=== PATIENT | male | born 1970 | race Caucasian/White ===

== ENCOUNTER 2017-09-01 11:57 | Emergency (ER) | payer OTHER ==
[~2017-09-01] VITALS: Ht 175.3 cm; Wt 102.1 kg
[~2017-09-01 11:57] MED LIST: CYCL10 PO; HYDACE5 PO; IBUP800 PO; NAPR500 PO; Norco 5-325 Ta1 EACH PO; OXYACE5T PO
[2017-09-01 14:13] LABS: Source, Urine Clean Catch
[2017-09-01 14:38] LABS: Appearance, Urine Clear (Clear); Bilirubin, Urine Neg (Neg); Blood, Urine Neg (Neg); Color, Urine Yellow (P-Yellow); Glucose Qualitative, Urine Neg (Neg); Ketones, Urine Neg (Neg); Leukocyte Esterase, Urine Neg (Neg); Nitrite, Urine Neg (Neg); Protein, Urine Neg (Neg); Specific Gravity, Urine 1.015 (1.003-1.022); Urobilinogen, Urine NORM (Normal)
[2017-09-02] MEDS ORDERED: Prednisone20 MG PO (12:18)
[2017-09-02] MEDS ORDERED: Permethrin60 GM TOP (12:18)
[2017-09-03 17:08] LABS: CHLAMYDIA TRACHOMATIS, NAA Positive (Negative); NEISSERIA GONORRHOEAE, NAA Negative (Negative)
== END 2017-09-01 15:44 | disposition home or self-care (01) ==
LOC: ER 11:57
PROVIDERS: Physician Assistant
DX: N50.89 Other specified disorders of the male genital organs (principal)
CPT/HCPCS: 76870; 81003; 96372; 99284; J0696

== ENCOUNTER 2017-09-02 11:54 | Emergency (ER) | payer OTHER ==
[~2017-09-02] VITALS: Ht 175.3 cm; Wt 102.1 kg
[2017-09-02] MEDS ORDERED: Permethrin60 GM TOP (12:18)
[2017-09-02] MEDS ORDERED: Prednisone20 MG PO (12:18)
== END 2017-09-02 12:43 | disposition home or self-care (01) ==
LOC: ER 11:54
DX: R21 Rash and other nonspecific skin eruption (principal)
CPT/HCPCS: J3301

== ENCOUNTER 2023-04-02 12:40 | Emergency (ER) | payer OTHER ==
[~2023-04-02] VITALS: Ht 172.7 cm; Wt 108.9 kg
[~2023-04-02 12:40] MED LIST changes: +Pepcid40 MG PO; +Permethrin60 GM TOP; +Prednisone20 MG PO; +Triamcinolone A15 GM TOP
[2023-04-02 13:06] VITALS: BP 140/112
[2023-04-02] MEDS ORDERED: MUPIROCIN1 G1 TOP (14:33)
[2023-04-02] MEDS ORDERED: SULTRIDS PO (14:33)
== END 2023-04-02 14:42 | disposition home or self-care (01) ==
LOC: ER 12:40
DX: L25.9 Unspecified contact dermatitis, unspecified cause (principal); Z79.899 Other long term (current) drug therapy
CPT/HCPCS: 99282

== ENCOUNTER 2023-04-04 17:09 | Emergency (ER) | payer OTHER ==
[~2023-04-04] VITALS: Ht 172.7 cm; Wt 108.9 kg
[~2023-04-04 17:09] MED LIST changes: +MUPIROCIN1 G1 TOP; +SULTRIDS PO
[2023-04-04 17:12] VITALS: BP 134/86
[2023-04-04] MEDS ORDERED: PRED10 PO (17:53)
[2023-04-04 18:06] LABS: BASOPHILS ABSOLUTE AUTO 0.04 K/mm3 (0.00-0.23); BASOPHILS PERCENT AUTO 1 % (0-2); EOSINOPHILS ABSOLUTE AUTO 0.19 K/mm3 (0.00-0.68); EOSINOPHILS PERCENT AUTO 2 % (0-6); Hematocrit 48.8 % (37.0-53.0); Hemoglobin 16.3 g/dL (13.5-17.5); IMMATURE GRAN ABSOLUTE AUTO 0.03 K/mm3 (0.00-0.10); IMMATURE GRAN PERCENT AUTO 0 % (0-1); LYMPHOCYTES ABSOLUTE AUTO 2.12 K/mm3 (0.84-5.20); LYMPHOCYTES PERCENT AUTO 26 % (21-46); MONOCYTES ABSOLUTE AUTO 0.93 K/mm3 (0.16-1.47); MONOCYTES PERCENT AUTO 12 % (4-13); Mean Corpuscular HGB 29.8 pg (26.0-34.0); Mean Corpuscular HGB Conc 33.4 g/dL (31.5-36.5); Mean Corpuscular Volume 89 fL (80-100); Mean Platelet Volume 9.5 fL (9.1-12.4); NEUTROPHILS ABSOLUTE AUTO 4.73 K/mm3 (1.96-9.15); NEUTROPHILS PERCENT AUTO 59 % (41-73); Platelet Count 277 K/mm3 (150-400); RDW Coefficient Variation 13.4 % (11.7-14.2); RDW Standard Deviation 43.9 fL (35.1-46.3); Red Blood Cell Count 5.47 M/mm3 (4.30-5.90); White Blood Cell Count 8.04 K/mm3 (4.00-11.30)
[2023-04-04 18:25] LABS: Albumin, Blood 3.5 g/dL (3.4-5.0); Albumin/Globulin Ratio 0.8 (0.8-1.8); Bilirubin, Total 0.3 mg/dL (0.1-1.0); Bun/Creatinine Ratio 19.3 (12.0-20.0); Calcium, Blood 8.6 mg/dL (8.5-10.1); Creatinine, Blood 1.19 mg/dL (0.60-1.20); Globulin, Blood 4.3 g/dL (2.2-4.0); Total Protein, Blood 7.8 g/dL (6.4-8.2)
== END 2023-04-04 18:08 | disposition home or self-care (01) ==
LOC: ER 17:09
PROVIDERS: Student in an Organized Health Care Education/Training Program
DX: L30.9 Dermatitis, unspecified (principal); G89.29 Other chronic pain; Z79.52 Long term (current) use of systemic steroids; Z79.899 Other long term (current) drug therapy
CPT/HCPCS: 80053; 85025; 99283; J7512

== ENCOUNTER 2023-10-13 15:43 | Emergency (ER) | payer OTHER ==
[~2023-10-13] VITALS: Ht 172.7 cm; Wt 72.6 kg
[~2023-10-13 15:43] MED LIST changes: +ALMACONE SUSPE355 ML PO; +FAMO20 PO; +PRED10 PO
[2023-10-13] MEDS ORDERED: Ondansetron HCl 2 MG / ML 2ML Vial IV PRN (16:00)
[2023-10-13 16:17] LABS: BASOPHILS ABSOLUTE AUTO 0.04 K/mm3 (0.00-0.23); BASOPHILS PERCENT AUTO 0 % (0-2); EOSINOPHILS ABSOLUTE AUTO 0.04 K/mm3 (0.00-0.68); EOSINOPHILS PERCENT AUTO 0 % (0-6); Hematocrit 51.1 % (37.0-53.0); Hemoglobin 17.1 g/dL (13.5-17.5); IMMATURE GRAN ABSOLUTE AUTO 0.05 K/mm3 (0.00-0.10); IMMATURE GRAN PERCENT AUTO 0 % (0-1); LYMPHOCYTES ABSOLUTE AUTO 0.49 K/mm3 (0.84-5.20); LYMPHOCYTES PERCENT AUTO 3 % (21-46); MONOCYTES PERCENT AUTO 5 % (4-13); Mean Corpuscular HGB 29.6 pg (26.0-34.0); Mean Corpuscular HGB Conc 33.5 g/dL (31.5-36.5); Mean Corpuscular Volume 88 fL (80-100); Mean Platelet Volume 9.3 fL (9.1-12.4); NEUTROPHILS ABSOLUTE AUTO 15.06 K/mm3 (1.96-9.15); NEUTROPHILS PERCENT AUTO 91 % (41-73); Platelet Count 363 K/mm3 (150-400); RDW Coefficient Variation 13.6 % (11.7-14.2); RDW Standard Deviation 44.1 fL (35.1-46.3); Red Blood Cell Count 5.78 M/mm3 (4.30-5.90); White Blood Cell Count 16.48 K/mm3 (4.00-11.30)
[2023-10-13 16:37] LABS: Albumin, Blood 4.1 g/dL (3.4-5.0); Bilirubin, Total 0.8 mg/dL (0.1-1.0); Bun/Creatinine Ratio 23.8 (12.0-20.0); Calcium, Blood 9.1 mg/dL (8.5-10.1); Creatinine, Blood 1.01 mg/dL (0.60-1.20); Globulin, Blood 4.2 g/dL (2.2-4.0); Potassium, Blood 4.3 mmol/L (3.5-5.5); Total Protein, Blood 8.3 g/dL (6.4-8.2)
[2023-10-13 17:01] LABS: Influenza A, PCR NEGATIVE (NEGATIVE); Influenza B, PCR NEGATIVE (NEGATIVE); Resp Syncytial Virus, PCR NEGATIVE (NEGATIVE); SARS-Cov-2 (COVID-19) PCR, MMC NEGATIVE (NEGATIVE)
[2023-10-13] MEDS ORDERED: Ketorolac Tromethamine 30mg Vial IV ONE (17:40)
[2023-10-13] MEDS ORDERED: NS 1,000 ML IV SCH (17:40)
[2023-10-13] MEDS ORDERED: RX Prepack 2 Tabs Ondansetron ODT 4MG UD ONE (20:05)
[2023-10-13] MEDS ORDERED: Dicyclomine HCl 20 MG Tab PO ONE (20:45)
[2023-10-13] MEDS ORDERED: ONDA4ODT MM (20:51)
[2023-10-13] MEDS ORDERED: PROMETHAZINE12.5 M1 PO (20:51)
[2023-10-13] MEDS ORDERED: PROM12.5S PR (20:51)
[2023-10-13 21:00] VITALS: BP 116/91
== END 2023-10-13 21:01 | disposition home or self-care (01) ==
LOC: ER 15:43
PROVIDERS: Student in an Organized Health Care Education/Training Program
DX: R19.7 Diarrhea, unspecified (principal); E86.0 Dehydration; R25.2 Cramp and spasm; D72.829 Elevated white blood cell count, unspecified; R10.32 Left lower quadrant pain; R11.10 Vomiting, unspecified; K42.9 Umbilical hernia without obstruction or gangrene; I25.10 Atherosclerotic heart disease of native coronary artery without angina pectoris; Z79.899 Other long term (current) drug therapy; Z95.5 Presence of coronary angioplasty implant and graft
CPT/HCPCS: 0241U; 51798; 74177; 80053; 83690; 83735; 85025; 93005; 93010; 96374; 96375; 99284-25; A9270; J1885; J2405; J7030; Q9967

== ENCOUNTER → 2024-05-06 | Outpatient (CLI) | payer OTHER ==
[~2024-05-06] MED LIST changes: +ONDA4ODT MM; +PROM12.5S PR; +PROMETHAZINE12.5 M1 PO
== END ==
LOC: LAB 19:00 → LAB SHORT 19:00 → LAB FUT 03-17 14:15
DX: K29.70 Gastritis, unspecified, without bleeding (principal); R10.30 Lower abdominal pain, unspecified; K21.9 Gastro-esophageal reflux disease without esophagitis
CPT/HCPCS: 87338